=== PATIENT | female | born 1985 | race African-American/Black ===

== ENCOUNTER 2017-12-17 13:28 | Emergency (ER) | payer OTHER ==
[~2017-12-17] VITALS: Ht 165.1 cm; Wt 80.0 kg
[~2017-12-17 13:28] MED LIST: FERR324T4 PO
[2017-12-17 13:31] VITALS: BP 110/66; PULSE 100; RESP 14; TEMP 98.1; O2SAT 100
--- NOTE | 2017-12-17 14:57 | PD ---
HPI Chief Complaint: Related Problem Time Seen by Provider: 14:52 Travel History International Travel<30 days: No Contact w/Intl Traveler<30days: No Traveled to known affect area: No History of Present Illness HPI 32-year-old -[place] female resents to the emergency department from [facility] for medical clearance for question . 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 She currently has no pain, vaginal symptoms, or vaginal discharge or bleeding. Her last menstrual period was in September. She denies fever, chills, urinary symptoms, or flank pain. She has no abdominal pain. She has no known drug allergies PFSH Past Medical History Blood Disorders: No Depression: Yes Cancer: No Cardiovascular Problems: No Diminished Hearing: No Endocrine: No Gastrointestinal Disorders: No Genitourinary: No Musculoskeletal: No Neurologic: No Reproductive: Yes (painful menses) Respiratory: No Immunizations Current: Yes ?: LMP: 10/09/17 : 0 Past Surgical History Ear Surgery: Yes (BirthMark removed) Neurologic Surgery: No Other Surgery: Yes Social History Alcohol Use: No Tobacco Use: No Substance Use: Yes (PATIENT DENIES. IS KNOWN TO ABUSE OPIATES AND COCAINE) Allergies-Medications (Allergen,Severity, Reaction): Coded Allergies: No Known Allergies (Verified Adverse Reaction, Unknown, 12/17/17) Reported Meds & Prescriptions Reported Meds & Active Scripts Active Review of Systems Except as stated in HPI: all other systems reviewed are Neg General / Constitutional: No: Fever Eyes: No: Visual changes HENT: No: Headaches Cardiovascular: No: Chest Pain or Discomfort Respiratory: No: Shortness of Breath Gastrointestinal: No: Abdominal Pain Genitourinary: No: Dysuria Musculoskeletal: No: Pain Skin: No Rash Neurologic: No: Weakness Psychiatric: Positive: Substance Abuse, No: Depression, Suicidal Ideations, Homicidal Ideation Endocrine: No: Polydipsia Hematologic/Lymphatic: No: Easy Bruising Physical Exam Narrative GENERAL: Patient is in no acute distress per SKIN: Warm and dry. Normal color. Normal turgor HEAD: Atraumatic. Normocephalic. EYES: Pupils equal and round. No scleral icterus. No injection or drainage. ENT: No nasal bleeding or discharge. Mucous membranes pink and moist. Pharynx is clear. Airways patent NECK: Trachea midline. Supple nontender CARDIOVASCULAR: Regular rate and rhythm. RESPIRATORY: No accessory muscle use. Clear to auscultation. Breath sounds equal bilaterally. GASTROINTESTINAL: Abdomen soft, non-tender, nondistended. Hepatic and splenic margins not palpable. No CVA tenderness MUSCULOSKELETAL: Extremities without clubbing, cyanosis, or edema. No obvious deformities. NEUROLOGICAL: Awake and alert. No obvious cranial nerve deficits. Motor grossly within normal limits. Five out of 5 muscle strength in the arms and legs. Normal speech. PSYCHIATRIC: Appropriate mood and affect; insight and judgment normal. Data Data Last Documented VS Vital Signs Date Time Temp Pulse Resp B/P (MAP) Pulse Ox O2 Delivery O2 Flow Rate FiO2 12/17/17 13:31 98.1 100 14 110/66 (81) 100 Orders Orders Beta Hcg (Quant/Titer) (12/17/17 14:54) Ed Urine Pregnancytest Poc (12/17/17 14:54) Us Pelvis (Ques Preg/Ectopic) (12/17/17 16:14) Ed Discharge Order (12/17/17 16:25) Labs Laboratory Tests Test 12/17/17 15:25 Human Chorionic Gonadotropin, Quant [id number] MIU/ML [facility] Medical Decision Making Medical Screen Exam Complete: Yes Emergency Medical Condition: Yes Differential Diagnosis Substance abuse. Medical clearance for [facility]. . Narrative Course Urine is positive. Serum hCG is ordered. Serum hCG is [id number]. Bedside ultrasound was performed showing an intrauterine . Patient is medically cleared for [facility] and can [facility] regarding her . Diagnosis Primary Impression: Qualified Codes: Z3A.08 - 8 weeks gestation of Referrals: [facility] Dept. Patient Instructions: General Instructions Additional Instructions: Serum hCG is [id number]. Bedside ultrasound was performed showing an intrauterine . Patient is medically cleared for [facility] and can follow-up with the women[facility] center regarding her . Med/Other Pt SpecificInfo: No Meds Exist/No RX given Disposition: DISCHARGE HOME Condition: Stable Clay Reece Dec 17, 2017 14:57
== END 2017-12-17 16:37 | disposition home or self-care (01) ==
LOC: NEPK 13:28
DX: O99.321 Drug use complicating pregnancy, first trimester (principal); F19.10 Other psychoactive substance abuse, uncomplicated; Z3A.08 8 weeks gestation of pregnancy
CPT/HCPCS: 84702; 84703; 99284